=== PATIENT | male | born 1980 | race Hispanic/Latino ===

== ENCOUNTER 2017-07-24 22:47 | Emergency (ER) | payer OTHER ==
[~2017-07-24] VITALS: Ht 175.3 cm; Wt 80.0 kg
[2017-07-24 23:46] VITALS: BP 130/66
== END 2017-07-24 23:55 | disposition home or self-care (01) | DRG 605 ==
LOC: ED 22:47
PROC: 0HQLXZZ Repair Left Lower Leg Skin, External Approach (ICD-10-PCS; principal; 2017-07-24)
DX: S81.812A Laceration without foreign body, left lower leg, initial encounter (principal); W26.8XXA Contact with other sharp object(s), not elsewhere classified, initial encounter; Y93.89 Activity, other specified; Y92.89 Other specified places as the place of occurrence of the external cause